=== PATIENT | female | born 1965 | race Caucasian/White ===

== ENCOUNTER → 2016-10-04 | Outpatient (CLI) | payer BC | LOC: MC.RAD 10:40 | DX: Z12.31 Encounter for screening mammogram for malignant neoplasm of breast (principal) ==

== ENCOUNTER → 2017-10-06 | Outpatient (CLI) | payer BC | LOC: MC.RAD 08:40 | DX: Z12.31 Encounter for screening mammogram for malignant neoplasm of breast (principal) ==

== ENCOUNTER 2018-05-29 13:47 | Day surgery (SDC) | payer BC ==
[2018-05-29] VITALS (7 sets, daily range): BP systolic 89–131; BP diastolic 39–71; PULSE 53–85; TEMP 97.8–98.1
[~2018-05-29] VITALS: Ht 162.6 cm; Wt 64.4 kg
[2018-05-29] MEDS ORDERED: PRIL40 PO (14:11)
[2018-05-29] MEDS ORDERED: LEXAPRO 10MG10 MG PO (14:11)
--- NOTE | 2018-05-29 15:25 | NUR ---
Pt to [facility] via cart from [place]. Pt drowsy, but awake. Pt ambulates to recliner with stand by assistance. in room. Pt denies pain or nausea. Pt takes sips of water without difficulties. Will continue to monitor. Call light within reach.
--- NOTE | 2018-05-29 15:40 | NUR ---
Pt continues to rest. Denies needs. Call light within reach.
--- NOTE | 2018-05-29 15:55 | NUR ---
Pt contininues to rest. into consult with pt and . Call light within reach.
--- NOTE | 2018-05-29 16:10 | NUR ---
Pt continues to rest. Denies needs. Call light within reach.
--- NOTE | 2018-05-29 16:25 | NUR ---
Pt continues to rest. Denies needs. Call light within reach.
--- NOTE | 2018-05-29 16:35 | NUR ---
Discharge instructions reviewed. Pt voices understanding. IV site discontinued with all parts intact. Pt up to dress. Call light within reach.
--- NOTE | 2018-05-29 16:50 | NUR ---
Pt escorted to private car via wheel chair. Pt accomanied home by her .
== END 2018-05-29 16:50 | disposition home or self-care (01) ==
LOC: SDCO 13:47
DX: K21.0 Gastro-esophageal reflux disease with esophagitis (principal); K25.7 Chronic gastric ulcer without hemorrhage or perforation; K22.2 Esophageal obstruction; Z80.0 Family history of malignant neoplasm of digestive organs; K29.70 Gastritis, unspecified, without bleeding; E78.00 Pure hypercholesterolemia, unspecified; Z90.710 Acquired absence of both cervix and uterus
CPT/HCPCS: J2250; J3010; J7030

== ENCOUNTER → 2018-10-14 | Outpatient (CLI) | payer BC ==
[~2018-10-14] MED LIST: LEXAPRO 10MG10 MG PO; PRIL40 PO
== END ==
LOC: MC.RAD 07:50
DX: Z12.31 Encounter for screening mammogram for malignant neoplasm of breast (principal)

== ENCOUNTER → 2018-12-10 | Outpatient (CLI) | payer BC | LOC: COL.LAB 10:40 | DX: Z00.00 Encounter for general adult medical examination without abnormal findings (principal); K21.9 Gastro-esophageal reflux disease without esophagitis ==

== ENCOUNTER → 2019-10-18 | Outpatient (CLI) | payer BC | LOC: MC.RAD 10:04 | DX: Z12.31 Encounter for screening mammogram for malignant neoplasm of breast (principal) ==

== ENCOUNTER → 2020-11-09 | Outpatient (CLI) | payer BC | LOC: MC.RAD 09:21 | DX: Z12.31 Encounter for screening mammogram for malignant neoplasm of breast (principal) ==

== ENCOUNTER → 2021-12-11 | Outpatient (CLI) | payer BC | LOC: MC.RAD 08:25 | DX: Z12.31 Encounter for screening mammogram for malignant neoplasm of breast (principal) ==

== ENCOUNTER → 2023-01-22 | Outpatient (CLI) | payer BC | LOC: CANSCHCLI → MC.RAD 09:55 | DX: Z12.31 Encounter for screening mammogram for malignant neoplasm of breast (principal) ==

== ENCOUNTER → 2024-01-27 | Outpatient (CLI) | payer BC | LOC: MC.RAD 08:55 | DX: Z12.31 Encounter for screening mammogram for malignant neoplasm of breast (principal) ==